=== PATIENT | male | born 1965 | race Caucasian/White ===

== ENCOUNTER 2024-06-16 13:15 | Emergency (ER) | payer OTHER ==
--- NOTE | 2024-06-16 15:34 | ER ---
Nurse's Notes [facility] Name: Artis Briones Age: 59 yrs Sex: Male : 1965 Arrival Date: 06/16/2024 Time: 13:15 Bed 19 Private MD: Diagnosis: Presentation: 06/16 13:09 Chief complaint: EMS states: SUDDEN LEFT LEG PAIN SINCE 1200 TODAY. REFUSED IV FROM db EMS. N/V X 2 DAYS THAT IS NOW RESOLVED. PT ARRIVED WRITHING AROUND IN PAIN AND YELLING FOR PAIN MEDICATION. ONCE ON STRETCHER BEGAN TO CALM DOWN. PT DENIES RECENT INJURY. STATES WAS SITTING DOWN WHEN PAIN BEGAN. Coronavirus screen: Client denies travel out of the [place] in the last 14 days. At this time, the client does not indicate any symptoms associated with coronavirus-19. Ebola Screen: Patient negative for fever greater than or equal to 101.5 degrees Fahrenheit, and additional compatible Ebola Virus Disease symptoms Patient denies exposure to infectious person. Patient denies travel to an Ebola-affected area in the 21 days before illness onset. No symptoms or risks identified at this time. Initial Sepsis Screen: Does the patient meet any 2 criteria? No. Patient's initial sepsis screen is negative. Does the patient have a suspected source of infection? No. Patient's initial sepsis screen is negative. Risk Assessment: Do you want to hurt yourself or someone else? Patient reports no desire to harm self or others. Onset of symptoms was June 16, 2024 at 12:00. 13:09 Method Of Arrival: EMS: [facility] db 13:09 Acuity: ALEXIA 3 db Triage Assessment: 13:09 General: Appears in no apparent distress. uncomfortable, Behavior is cooperative, db anxious. General: Behavior is restless. Pain: Complains of pain in left leg. Neuro: Level of Consciousness is awake, alert, obeys commands, Oriented to person, place, time, situation. Respiratory: Airway is patent Respiratory effort is even, unlabored, Respiratory pattern is regular, symmetrical. Historical: - Allergies: 13:25 No Known Allergies; db - PMHx: 13:25 Hypertensive disorder; db - Immunization history:: Adult Immunizations unknown. - Infectious Disease History:: Denies. - Social history:: Smoking status: unknown. Screenin:59 [facility] ED Fall Risk Assessment (Adult) History of falling in the last 3 months, db including since admission No falls in past 3 months (0 pts) Confusion or Disorientation No (0 pts) Intoxicated or Sedated No (0 pts) Impaired Gait No (0 pts) Mobility Assist Device Used No (0 pt) Altered Elimination No (0 pt) Score/Fall Risk Level 0 - 2 = Low Risk Oriented to surroundings, Maintained a safe environment. Abuse screen: Denies threats or abuse. Denies injuries from another. Nutritional screening: No deficits noted. Tuberculosis screening: No symptoms or risk factors identified. Assessment: 13:26 Reassessment: SEE TRIAGE FOR INITIAL ASSESSMENT. db 13:55 General: Appears in no apparent distress. comfortable, Behavior is calm, cooperative. db Neuro: Level of Consciousness is awake, alert, obeys commands, Oriented to person, place, time, situation. Cardiovascular: Capillary refill Patient's skin is warm and dry. Cardiovascular: Pulses are 2+ in left dorsalis pedis artery are 4+ in right dorsalis pedis artery. Respiratory: Airway is patent Respiratory effort is even, unlabored, Respiratory pattern is regular, symmetrical. Musculoskeletal: 14:41 Reassessment: PATIENT REFUSED IV START AT THIS TIME. NOTIFIED DR. SOLORIO. DR. castro SOLORIO SPOKE WITH PT. PT STATES WILL LET STAFF ATTEMPT AGAIN. 14:58 Reassessment: PATIENT REFUSED IV START AT THIS TIME. db 15:27 Reassessment: Patient is alert, oriented x 3, equal unlabored respirations, skin aa5 warm/dry/pink. Pt is a hard stick, to bedside to attempt IV access, pt refusing IV, MD was notified. . 15:30 Reassessment: Patient appears in no apparent distress at this time. Patient and/or db family updated on plan of care and expected duration. Pain level reassessed. Patient is alert, oriented x 3, equal unlabored respirations, skin warm/dry/pink. PT REPORTS WANTS TO GO HOME. SIGNED AMA FORM. WITNESSED AMBULATORY OUT OF ED. STEADY GATE. NAD. General: Appears in no apparent distress. comfortable, Behavior is calm, cooperative. Vital Signs: 13:09 BP 110 / 70; Pulse 70; Resp 16; Temp 97.3; Pulse Ox 98% ; Weight 94 kg; db 13:55 BP 102 / 49; Pulse 57; Resp 16; Pulse Ox 95% ; db 15:00 BP 106 / 58; Pulse 62; Resp 16; Pulse Ox 96% on R/A; db ED Course: 13:09 Arm band placed on right wrist. Patient placed in an exam room. db 13:16 Patient arrived in ED. db 13:16 Kaylie Solorio MD is Attending Physician. sw6 13:25 Triage completed. db 13:55 Mary Alice Min, RN is Primary Nurse. db 14:20 Missed attempt(s): 20 gauge in right antecubital area. Bleeding controlled, band aid db applied, catheter tip intact. 14:25 Missed attempt(s): 22 gauge in left antecubital area. Bleeding controlled, band aid ph applied, catheter tip intact. 14:59 Radiology exam delayed due to refusing IV at this time. jc4 14:59 Radiology exam delayed due to lab results not completed at this time. (BUN/Creatinine) jc4 IV insertion attempt and/or patient not having appropriate IV at this time. 15:30 Patient has correct armband on for positive identification. Bed in low position. Call db light in reach. Side rails up X 1. 15:30 Patient did not have IV access during this emergency room visit. db 15:35 Provided Education on: AMA, VERBALIZED WILL RETURN IF SYMPTOMS WORSEN. UNDERSTANDS db RISKS OF LEAVING.. Warm blanket given. Pillow given. 15:37 Radiology exam delayed due to lab results not completed at this time. (BUN/Creatinine). nj Administered Medications: No medications were administered Medication: 15:30 VIS not applicable for this client. db Outcome: 15:35 AMA AMA form signed db 15:35 Condition: stable 15:35 Discharge instructions given to patient, Instructed on AMA INSTRUCTIONS. DR. SOLORIO EXPLAINED TO PATIENT RISKS OF LEAVING. PT VERBALIZED UNDERSTANDING. 15:38 Patient left the ED. db Signatures: Bianca Ritchie, ART RN aa5 Kay Simeon RN RN Keith Claudio Danielle, ART RN db Kaylie Solorio MD MD 6 Edward Padilla [email or web address] Corrections: (The following items were deleted from the chart) 13:27 13:09 Chief complaint: EMS states: SUDDEN LEFT LEG PAIN SINCE 1200 TODAY. REFUSED IV db FROM EMS. N/V X 2 DAYS THAT IS NOW RESOLVED. PT ARRIVED WRITHING AROUND IN PAIN AND YELLING FOR PAIN MEDICATION. ONCE ON STRETCHER BEGAN TO CALM DOWN db
--- NOTE | 2024-06-16 15:34 | EDPHYS ---
Physician Documentation [facility] Name: Artis Briones Age: 59 yrs Sex: Male : 1965 Arrival Date: 06/16/2024 Time: 13:15 Bed 19 Private MD: ED Physician Kaylie Awad HPI: 06/16 14:07 This 59 yrs old Male presents to ER via EMS with complaints of Leg Pain. sw6 14:07 Onset: The symptoms/episode began/occurred 2 hour(s) ago. Modifying factors: The sw6 symptoms are alleviated by Putting pressure on the left groin.. Treatment prior to arrival includes: no previous treatment. The patient has not experienced similar symptoms in the past. The patient presented EMS from home for evaluation for numbness to his left leg that started about 1.5 hours prior to arrival. He reports he was sitting at home when the symptoms started. He denies any injury or trauma. He reports the numbness feels better when he puts pressure on a nerve in his left groin. He reports since arrival to the ER the sensation to his left lower leg is improving. No medication given by EMS. He reports a history of high blood pressure but does not take any medications for this. No chest pain or pressure. No shortness of breath. Here for evaluation.. Historical: - Allergies: 13:25 No Known Allergies; db - PMHx: 13:25 Hypertensive disorder; db - Immunization history:: Adult Immunizations unknown. - Infectious Disease History:: Denies. - Social history:: Smoking status: unknown. ROS: 14:07 Constitutional: Negative for fever, chills, and weight loss, Cardiovascular: Negative sw6 for chest pain, palpitations, and edema, Respiratory: Negative for shortness of breath, cough, wheezing, and pleuritic chest pain, Abdomen/GI: Negative for abdominal pain, nausea, vomiting, diarrhea, and constipation, Back: Negative for injury and pain, Skin: Negative for injury, rash, and discoloration, 14:07 MS/Extremity: Negative for injury and deformity, 14:07 Neuro: Positive for Numbness to the entire left leg, 14:07 All other systems are negative, Exam: 14:07 Constitutional: This is a well developed, well nourished patient who is awake, alert, sw6 and in no acute distress. Cardiovascular: Regular rate and rhythm with a normal S1 and S2. No gallops, murmurs, or rubs. Normal PMI, no JVD. No pulse deficits. Respiratory: Lungs have equal breath sounds bilaterally, clear to auscultation and percussion. No rales, rhonchi or wheezes noted. No increased work of breathing, no retractions or nasal flaring. Abdomen/GI: Soft, non-tender, with normal bowel sounds. No distension or tympany. No guarding or rebound. No evidence of tenderness throughout. 14:07 Musculoskeletal/extremity: No deformity noted to the left lower leg. He has full passive range of motion of the left hip, knee and ankle. his left foot is initially cool and slightly cyanotic upon arrival but does improve after several minutes. He has an easily palpable dorsalis pedis to the right foot and a dopplerable dorsalis pedis to the left foot.. Vital Signs: 13:09 BP 110 / 70; Pulse 70; Resp 16; Temp 97.3; Pulse Ox 98% ; Weight 94 kg; db 13:55 BP 102 / 49; Pulse 57; Resp 16; Pulse Ox 95% ; db 15:00 BP 106 / 58; Pulse 62; Resp 16; Pulse Ox 96% on R/A; db MDM: 13:16 Medical Screening Exam initiated 14:07 Differential diagnosis: Arterial occlusion of the left leg. Data reviewed: vital signs, 6 nurses notes, EMS record. 15:31 Refusal of service: The patient/guardian displays adequate decision making capability [facility] and despite a detailed discussion of alternatives, benefits, risks, and consequences refuses: CT Scan, all lab tests. ED course: Several attempts were made by nursing staff to place an IV line to obtain laboratory studies as well as a CT angiogram of his left lower leg with runoff to evaluate for arterial occlusion and all were unsuccessful. The patient reported he does not want any more attempts and would rather leave the ER as his symptoms have since resolved. He was able to get up from the bed without assistance and walked out of the ER without any limp or gait abnormalities. He did sign the AMA paperwork. . 06/16 13:56 Order name: CMP [facility] 06/16 14:55 Order name: Misc. Order; Complete Time: 15:00 kb3 Administered Medications: No medications were administered Disposition Summary: 06/16/24 15:33 Left Against Medical Advice Notes: Location: Home sw6 Problem: new sw6 Symptoms: are resolved sw6 Condition: Stable sw6 Signatures: Dispatcher [employer] EDSandra Thompson, RN RN kb3 Mary Alice Min RN RN db Kaylie Awad MD MD sw6 Corrections: (The following items were deleted from the chart) 14:37 14:35 Pelvis Angio+CT.RAD.[email or web address] ordered. EDMS EDMS
[2024-06-16 15:37] LABS: Albumin 3.3 g/dL (3.4-5.0); Albumin/Globulin Ratio 0.9 (1.1-1.8); Anion Gap 8.4 mEq/L (5.0-15.0); Bilirubin Total 0.7 mg/dL (0.2-1.0); Globulin 3.5 g/dL (2.3-3.5); Potassium 5.4 mEq/L (3.5-5.1); Protein, Total 6.8 g/dL (6.4-8.2)
[2024-06-16 15:44] VITALS: BP 106/58; O2SAT 96
== END 2024-06-16 15:38 | disposition left against medical advice (07) ==
LOC: ER 13:15
DX: R20.0 Anesthesia of skin (principal); M79.605 Pain in left leg; I10 Essential (primary) hypertension
CPT/HCPCS: 36415; 80053; 99283